=== PATIENT | female | born 1965 ===

== ENCOUNTER 2018-05-06 07:24 | Day surgery (SDC) | payer BC ==
[2018-04-22 12:00] VITALS: BMI 25.3
[2018-05-06] MEDS ORDERED: Lidocaine/Epinephrine 1% 1:100000 10 ML IJ ONE (08:57)
[2018-05-06] MEDS ORDERED: cefOXitin IV 1 gm in Dextrose 1 GM/50 ML BAG IVPB ONE (08:58)
[2018-05-06] MEDS ORDERED: Midazolam 2 MG/2 ML VIAL ONE (09:25)
[2018-05-06] MEDS ORDERED: Propofol 10 mg/ml Inj (20 ML) ONE (09:25)
[2018-05-06] MEDS ORDERED: HYDROmorphone 0.5 mg/0.5 ml ISec IVP PRN (10:06)
[2018-05-06] MEDS ORDERED: Lactated Ringer's 1,000 ML IV ONE ×2 (11:38→11:49)
--- NOTE | 2018-05-06 12:51 | PCM.SURG1 ---
Surgeon's Initial Post Op Note - Surgeon's Notes Surgeon: Derek Bag Making Machine Tender: None Type of Anesthesia: General LMA Pre-Operative Diagnosis: recurrent bartholin gland abscess, thickened endometrial, irregular perimenopausal bleeding Operative Findings: enodmetrial polyp, adhesed/fibrosed bartholin gland left Post-Operative Diagnosis: same Operation Performed: hysteroscopy D&C myosure, left bartholin gland excision Specimen/Specimens Removed: bartholin gland 1 & 2 Estimated Blood Loss: EBL {In ML}: 30 Date of Surgery/Procedure: 05/06/18 Time of Surgery/Procedure: 12:51
[2018-05-06 13:29] VITALS: RESP 10; TEMP 97.1; O2SAT 99
[2018-05-06 16:19] VITALS: BP 116/79; PULSE 75
--- NOTE | 2018-05-13 05:57 | OP ---
PROCEDURE DATE: 05/06/2018 PREOPERATIVE DIAGNOSES: 1. Recurrent Bartholin gland abscess. 2. Thickened endometrium, irregular perimenopausal bleeding. POSTOPERATIVE DIAGNOSES: 1. Recurrent Bartholin gland abscess. 2. Thickened endometrium, irregular perimenopausal bleeding. 3. Endometrial polyp. SURGEON: Kay Reed MD FINANCIAL PLANNING ADVISOR: None. TYPE OF ANESTHESIA: General LMA. OPERATIVE FINDINGS: No evidence of perforation, proliferative endometrium, endometrial polyp, densely adhesed, fibrosed Bartholin gland of the left side. PROCEDURE PERFORMED: Hysteroscopy, dilation and curettage, MyoSure polypectomy, and left Bartholin gland excision. OPERATIVE PROCEDURE: The patient was taken to the OR, where all identifiers were correct and the time-out was performed. She was prepped and draped in the usual sterile fashion. Bimanual exam was performed. The cervix was grasped with a single-tooth tenaculum and serially dilated to allow passage of the operative hysteroscope. Normal saline distention medium was used. After visualizing the cavity, MyoSure device was used to resect the pathology and then perform a visually directed D and C. There was no perforation at the end of the case. Normal saline deficit was 15 mL. Attention was then turned to the Bartholin gland, which was enlarged on the left side. The vaginal side of the gland was incised at the 4 o'clock position of the vagina. The cyst was ungrooved and dissected sharply and with cautery. The gland was found to be very adhesed and fibrosed. After gland was excised in its entirety, the base of the gland remained was cauterized and sterilely sutured in a purse-string fashion until all the defects were closed. The wound was hemostatic. No packing was needed. All laps and needle counts were correct and all instruments were removed from the patient. The patient tolerated the procedure well. SPECIMEN REMOVED: Bartholin gland, 1 and 2 endometrial curetting. ESTIMATED BLOOD LOSS: 30 mL. CONDITION: Stable for PACU. Kay Reed MD
== END 2018-05-06 16:19 | disposition home or self-care (01) ==
LOC: C.SDS 07:24
PROVIDERS: ATTEND Obstetrics & Gynecology
DX: N75.1 Abscess of Bartholin's gland (principal); R10.2 Pelvic and perineal pain
CPT/HCPCS: 56740; 58558; 88304; 88305; J0694; J1100; J1170; J1885; J2001; J2250; J2405; J2704; J3010; J7120